=== PATIENT | female | born 1990 | race American Indian/Alaskan Native ===

== ENCOUNTER 2020-05-07 19:08 | Emergency (ER) | payer SELFPAY ==
[2020-05-08] MEDS ORDERED: IBUPROFEN 600 MG TAB PO ONE (02:40)
[2020-05-08] MEDS ORDERED: ACETAMINOPHEN 500 MG TAB PO ONE (02:40)
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
[2020-05-08 06:27] VITALS: BP 147/91
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
== END 2020-05-08 07:41 | disposition home or self-care (01) ==
LOC: ED 19:08
DX: S83.91XA Sprain of unspecified site of right knee, initial encounter (principal); S83.92XA Sprain of unspecified site of left knee, initial encounter; S46.919A Strain of unspecified muscle, fascia and tendon at shoulder and upper arm level, unspecified arm, initial encounter; M62.838 Other muscle spasm; M62.830 Muscle spasm of back; J45.909 Unspecified asthma, uncomplicated; Z79.899 Other long term (current) drug therapy; Z98.890 Other specified postprocedural states; V49.49XA Driver injured in collision with other motor vehicles in traffic accident, initial encounter; Y92.410 Unspecified street and highway as the place of occurrence of the external cause; Y93.89 Activity, other specified; Y99.8 Other external cause status
CPT/HCPCS: 36415; 70450; 71046; 72100; 72125; 84703